=== PATIENT | male | born 1960 | race Hispanic/Latino ===

== ENCOUNTER 2021-04-18 08:47 | Outpatient (CLI) | payer OTHER ==
--- NOTE | 2021-04-18 09:44 | XRay Report ---
RIGHT HAND 3 VIEWS INDICATION: HAND/WRIST PROBLEM. COMPARISON: None. IMPRESSION: No acute osseous or soft tissue abnormality. 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 The third metacarpophalangeal joint appears most affected. Signer Name: Ashkan Villa Jr, MD Signed: 04/18/2021 9:39 AM Workstation Name: [id number]
== END 2021-04-18 08:48 | disposition home or self-care (01) ==
LOC: XRAY 08:47
PROVIDERS: ATTEND Internal Medicine
DX: M19.041 Primary osteoarthritis, right hand (principal)